=== PATIENT | male | born 1950 | race African-American/Black ===

== ENCOUNTER 2017-08-20 11:54 | Inpatient (IN) ==
[2017-08-20] MEDS: FLUOROURACIL IV SCH (17:49)
[2017-08-20] MEDS: SODIUM CHLORIDE 0.9% IV SCH (17:49)
[2017-08-20] MEDS ORDERED: LACTULOSE 20 GM/30 ML UDCUP PO PRN (18:12)
[2017-08-20] MEDS ORDERED: chlorproMAZINE INJ 50 MG in SODIUM CHLORIDE 0.9% 100 ML IV PRN (18:12)
[2017-08-20] MEDS ORDERED: traMADol 50 MG TABLET PO PRN (18:12)
[2017-08-20] MEDS ORDERED: diphenhydrAMINE CAP 25 MG CAPSULE PO PRN (18:12)
[2017-08-20] MEDS ORDERED: ALUMINUM/MAGNES/SIMETH MAX STR 30 ML UDCUP PO PRN (18:12)
[2017-08-20] MEDS ORDERED: MAGNESIUM HYDROXIDE SUSP 30 ML UDCUP PO PRN (18:12)
[2017-08-20] MEDS ORDERED: ALPRAZolam 0.25 MG TABLET PO PRN (18:12)
[2017-08-20] MEDS ORDERED: TEMAZEPAM 7.5 MG CAPSULE PO PRN (18:12)
[2017-08-20] MEDS ORDERED: guaiFENesin 200 MG/10 ML UDCUP PO PRN (18:12)
[2017-08-20] MEDS ORDERED: chlorproMAZINE INJ 25 MG in SODIUM CHLORIDE 0.9% 100 ML IV PRN (18:12)
[2017-08-20] MEDS ORDERED: chlorproMAZINE 25 MG TABLET PO PRN (18:12)
[2017-08-20] MEDS ORDERED: PROMETHAZINE INJ 25 MG in SODIUM CHLORIDE 0.9% 50 ML IV PRN (18:12)
[2017-08-20] MEDS ORDERED: ONDANSETRON 4 MG/2 ML VIAL IV PRN (18:12)
[2017-08-20] MEDS ORDERED: MYLANTA/LIDO VISC 2:1 300 ML BOTTLE SWISH/SWAL PRN (18:12)
[2017-08-20] MEDS ORDERED: ACETAMINOPHEN 325 MG TABLET PO PRN (18:12)
[2017-08-20] MEDS ORDERED: BENZTROPINE 2 MG/2 ML AMP IV PRN (18:12)
[2017-08-20] MEDS ORDERED: LOPERAMIDE 2 MG CAPSULE PO PRN ×2 (18:12)
[2017-08-20] MEDS ORDERED: MYLANTA/LIDO VISC 2:1 300 ML BOTTLE SWISH/SPIT PRN (18:12)
[2017-08-20 23:33] LABS: Apearance,Urine Slightly Hazy (Clear); Bilirubin,Urine Negative (Negative); Blood, Urine Negative (Negative); Glucose,Urine (UA) Negative (Negative); Ketones,Urine Negative (Negative); Mucus,Urine Occasional /LPF (Occasional); Nitrite,Urine Negative (Negative); Protein,Urine Negative; Urine Color Yellow (Yellow); Urine Specific Gravity 1.019 (1.001-1.035); Urine Urobilinogen < 2.0 EU/DL (0.2-1.0); WBC,Urine 1 /HPF (0-6)
[2017-08-21 05:00] LABS: Basophils % 0.1 % (0.0-0.8); Eosinophils % 0.1 % (0.00-10.9); Hematocrit 29.9 VOL% (42.0-52.0); Hemoglobin 10.1 GM/DL (14.0-18.0); Immature Granulocytes % 0.4 %; Immature Granulocytes Absolute 0.04 #; Lymphocytes # 1.5 10*3/uL (1.4-4.0); Lymphocytes % 15.5 % (21.2-54.2); Mean Corpuscular HGB Conc 33.8 GM/DL (32-36); Mean Corpuscular Hemoglobin 29 PG (27-34); Mean Corpuscular Volume 84.5 FL (87-102); Mean Platelet Volume 9.6 FL (9.6-12.0); Monocytes # 0.5 10*3/uL (0.11-0.8); Monocytes % 5.7 % (1.7-12.7); Neutrophils # 7.4 10*3/uL (1.4-7.4); Neutrophils % 78.2 % (38.7-73.9); Platelet Count 265 T/CUMM (130-400); Red Blood Count 3.54 MC/CUMM (3.8-5.5); Red Cell Distribution Width 17.2 % (9.3-17.3); White Blood Count 9.4 T/CUMM (4-12)
[2017-08-21 05:33] LABS: Albumin 2.8 G/DL (3.4-5.0); Bilirubin,Total 0.4 MG/DL (0.2-1.0); Calcium 8.3 MG/DL (8.5-10.1); Osmolality,Calculated 288.7 MOS/KG (273-304); Potassium 4.4 MMOL/L (3.5-5.1); Total Protein 5.5 G/DL (6.4-8.3); Uric Acid 4.6 MG/DL (3.5-7.2)
[2017-08-21] MEDS: SODIUM CHLORIDE 0.9% IV SCH (17:17)
[2017-08-21] MEDS: FLUOROURACIL IV SCH (17:17)
[2017-08-22 05:22] LABS: Basophils % 0.2 % (0.0-0.8); Eosinophils # 0.1 10*3/uL (0.0-0.87); Eosinophils % 0.5 % (0.00-10.9); Hematocrit 29.7 VOL% (42.0-52.0); Hemoglobin 9.9 GM/DL (14.0-18.0); Immature Granulocytes % 0.4 %; Immature Granulocytes Absolute 0.04 #; Lymphocytes # 3.2 10*3/uL (1.4-4.0); Lymphocytes % 29.5 % (21.2-54.2); Mean Corpuscular HGB Conc 33.3 GM/DL (32-36); Mean Corpuscular Hemoglobin 29 PG (27-34); Mean Corpuscular Volume 86.1 FL (87-102); Mean Platelet Volume 9.7 FL (9.6-12.0); Monocytes # 0.6 10*3/uL (0.11-0.8); Monocytes % 5.8 % (1.7-12.7); Neutrophils % 63.6 % (38.7-73.9); Platelet Count 261 T/CUMM (130-400); Red Blood Count 3.45 MC/CUMM (3.8-5.5); Red Cell Distribution Width 17.6 % (9.3-17.3)
[2017-08-22] MEDS ORDERED: MAGNESIUM SULF RIDER 4 GM in PREMIX 1 EACH IV ONE (08:50)
[2017-08-22 11:21] VITALS: BP 130/83
== END 2017-08-22 17:35 | disposition home or self-care (01) | DRG 847 ==
LOC: N.4E 16:09
PROVIDERS: ADMIT Specialist; ATTEND Specialist